=== PATIENT | female | born 1940 | race Caucasian/White ===

== ENCOUNTER 2018-03-27 07:10 | Day surgery (SDC) | payer MEDICARE, BC ==
[~2018-03-27 07:10] MED LIST: Lactated Ringers 1,000 ML IV SCH; Lidocaine 1%/Sod Bicarbonate in NS 8.4% 1 ML Syringe IDERM PRN; Sodium Chloride 0.9% 10 ML Syringe FLUSH PRN
[2018-03-27] MEDS ORDERED: Lidocaine 1% with EPINEPHrine 1:100,000 20 ML MDV ONE (07:25)
[2018-03-27] MEDS ORDERED: Lidocaine 1% 30 ML SDV ONE (07:26)
--- NOTE | 2018-03-27 07:46 | PCM.PREANE ---
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 no difference in her behavior or symptoms) - Physical Assessment NPO Status Date: 03/26/18 NPO Status Time: 21:00 O2 Sat by Pulse Oximetry: 98 Respiratory Rate: 20 Blood Pressure: 157/102 Temperature: 98 F ASA Class: 2 Mental Status: Other (Patient is demented .) - Allergies Allergies/Adverse Reactions: Allergies Allergy/AdvReac Type Severity Reaction Status Date / Time adhesive Allergy Cannot Verified 10/04/14 12:47 Remember celecoxib [From Celebrex] Allergy Cannot Verified 10/04/14 12:47 Remember ketorolac tromethamine Allergy Cannot Verified 10/04/14 12:47 [From Toradol] Remember latex Allergy Cannot Verified 10/04/14 12:47 Remember meperidine HCl [From Demerol] Allergy Cannot Verified 10/04/14 12:47 Remember NSAIDS (Non-Steroidal Allergy Cannot Verified 10/04/14 12:47 Anti-Inflamma Remember Sulfa (Sulfonamide Allergy Cannot Verified 10/04/14 12:47 Antibiotics) Remember - Acknowledgements Anesthesia Type Planned: MAC Pt an Appropriate Candidate for the Planned Anesthesia: Yes Alternatives and Risks of Anesthesia Discussed w Pt/Guardian: Yes Pt/Guardian Understands and Agrees with Anesthesia Plan: Yes Additional Comments: anesthesia consent signed by [employer] (PHONE CONSENT) by RAUDEL MOSER PreAnesthesia Questionnaire HEENT History: Reports: Cataract, Other (See Below) Other HEENT History: conjunctivitis Cardiovascular History: Reports: Afib, Blood Clots/VTE/DVT, Hypertension Other Cardiovascular History: currently on coumadin Psychiatric History: Reports: Anxiety, Dementia Dermatologic History: Reports: Other (See Below) Other Dermatologic History: rosacea - Past Surgical History GI Surgical History: Reports: Appendectomy - History Comment History Comment: Patient is demented, unable to provide medical history - HOME MEDS Home Medications: Home Meds Acetaminophen [Tylenol] 650 mg PO DAILY PRN 02/18/15 [History] Calcium Carbonate [Tums] 600 mg PO DAILY PRN 02/18/15 [History] Calcium Citrate/Vitamin D3 [Calcium Citrate + D] 500 tab PO DAILY 02/18/15 [ History] Folic Acid 1 mg PO DAILY 02/18/15 [History] Lactose-Reduced Food [Ensure Original] 8 oz PO DAILY 02/18/15 [History] Loperamide [Imodium] 2 mg PO DAILY PRN 02/18/15 [History] Magnesium Hydroxide [Milk of Magnesia] 30 ml PO DAILY PRN 02/18/15 [History] Memantine HCl [Namenda Xr] 10 mg PO BID 02/18/15 [History] Multivitamin [Multivitamins] 1 cap PO DAILY 02/18/15 [History] Rivastigmine [Exelon] 3 mg PO BID 02/18/15 [History] Warfarin [Coumadin] 1.25 mg PO BEDTIME 02/18/15 [History] metroNIDAZOLE [Metrogel 1%] 1 mg VAG BEDTIME 02/18/15 [History] Multivitamins with Iron/Min [Cerovite Jr] 1 tab PO DAILY 03/27/18 [History] OLANZapine [ZyPREXA] 2.5 mg PO BID 03/27/18 [History] - CURRENT (IN HOUSE) MEDS Current Meds: Current Medications Lactated Ringer's (Ringers, Lactated) 1,000 mls @ 125 mls/hr IV ASDIRECTED KIMBERLY Stop: 03/27/18 23:00 Lidocaine/Sodium Bicarbonate (Buffered Lidocaine 1% In Ns 8.4%) 0.25 ml IDERM ONETIME PRN PRN Reason: Prior to IV Start Stop: 03/27/18 18:00 Sodium Chloride (Saline Flush) 10 ml FLUSH ASDIRECTED PRN PRN Reason: Keep Vein Open Stop: 03/27/18 18:00 Discontinued Medications Lidocaine HCl (Xylocaine-Mpf 1%) Confirm Administered Dose 30 ml .ROUTE .STK- MED ONE Stop: 03/27/18 07:27 Lidocaine/Epinephrine (Xylocaine 1% With Epinephrine 1:100,000) Confirm Administered Dose 20 ml .ROUTE .STK-MED ONE Stop: 03/27/18 07:26
[2018-03-27] MEDS ORDERED: Lidocaine 1% 4 ML ONE (08:06)
[2018-03-27] MEDS ORDERED: fentaNYL 100 MCG/2 ML SDV ONE (08:07)
[2018-03-27] MEDS ORDERED: Propofol 200 MG/20 ML SDV ONE ×2 (08:07→10:04)
[2018-03-27] MEDS ORDERED: Bacitracin Oint 15 GM Tube ONE (09:49)
[2018-03-27] MEDS ORDERED: Lidocaine 1% 2 ML ONE (10:11)
--- NOTE | 2018-03-27 10:26 | PCM.OPNOTE ---
- General Post-Op/Procedure Note Date of Surgery/Procedure: 03/27/18 Operative Procedure(s): excision of SCC with full thickness skin graft Pre Op Diagnosis: SCc Post-Op Diagnosis: Same Anesthesia Technique: MAC Primary Surgeon: Wan TEMPLE in mLs: 5 Complications: None Condition: Good
[2018-03-27 10:27] VITALS: BP 129/75
--- NOTE | 2018-03-27 10:27 | PCM48HPAN ---
Post Anesthesia Note - EVALUATION WITHIN 48HRS OF ANESTHETIC Vital Signs in Normal Range: Yes Patient Participated in Evaluation: Yes Respiratory Function Stable: Yes Airway Patent: Yes Cardiovascular Function Stable: Yes Hydration Status Stable: Yes Pain Control Satisfactory: Yes Nausea and Vomiting Control Satisfactory: Yes Mental Status Recovered: Yes (back to baseline) Pulse Rate: 93 SaO2: 94 Resp Rate: 18 Temperature: 97.6 F Blood Pressure: 129/75
--- NOTE | 2018-03-28 06:49 | OR ---
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 OPERATION PERFORMED: Excision and full-thickness skin graft, under frozen section control. FINDINGS: An ulcerating lesion measuring margin and lesion 3.5 cm with a skin graft composing of graft harvested from the left side of the neck measuring 1.5 cm. ANESTHESIA: IV sedation, local anesthetic. ESTIMATED BLOOD LOSS: 5 mL. DESCRIPTION OF PROCEDURE: The patient was taken to the operating room, placed in the supine position, connected to monitoring equipment, and given IV sedation. The area in question was identified and prepped with Betadine after protecting the eye. Using a marking pen, the lines of excision were then marked and measured, and then anesthetized. The lesion was then excised, and the inferomedial margin was marked with a short suture, black suture; superomedial margin marked with a long black suture; and the superior-lateral and superior-inferior margin were left unmarked, but were in a clockwise formation. The specimen was then sent to pathology, where frozen section showed clear margins. The skin edges were undermined. The skin was then brought together with interrupted 4-0 Vicryl suture, except for a small central area measuring 1.5 cm. This was left open and a skin graft was harvested from the neck. Skin graft was placed in position and sutured to the edge of the skin with interrupted 4-0 Vicryl suture. These were left long so that cotton impregnated with bacitracin was used as a bolster and it was tied in place with long Vicryl sutures. The rest of the incision was then closed. The skin was then closed with interrupted 4-0 Prolene suture. Sterile dressing placed. The donor site was closed first with buried subdermal interrupted 4-0 Vicryl suture and interrupted 4-0 Prolene suture. Sterile dressing placed. The patient tolerated the procedure and sent to recovery room in a stable condition. MMODAL /[id number]
== END 2018-03-27 11:31 | disposition home or self-care (01) ==
LOC: JD.SDS 07:10
PROVIDERS: ATTEND Surgery
DX: D04.39 Carcinoma in situ of skin of other parts of face (principal); I10 Essential (primary) hypertension; I48.91 Unspecified atrial fibrillation; F41.9 Anxiety disorder, unspecified; I82.409 Acute embolism and thrombosis of unspecified deep veins of unspecified lower extremity; Z79.01 Long term (current) use of anticoagulants; Z79.899 Other long term (current) drug therapy; Z88.5 Allergy status to narcotic agent; Z88.6 Allergy status to analgesic agent; Z88.2 Allergy status to sulfonamides; Z91.040 Latex allergy status
CPT/HCPCS: 11644; 15240; 36415; 85610; A9270; J2704; J3010; J7120; 00300; 88305; J2001

== ENCOUNTER 2018-11-06 13:01 | Emergency (ER) | payer MEDICARE, BC ==
[2018-11-06 13:38] VITALS: BP 129/90
--- NOTE | 2018-11-06 14:46 | EDM.PDOC ---
ED HPI GENERAL MEDICAL PROBLEM - General Chief Complaint: Upper Extremity Injury/Pain Stated Complaint: LT HAND INJURY Time Seen by Provider: 11/06/18 14:34 Source of Information: Reports: Patient, Family History Limitations: Reports: Altered Mental Status (History of dementia and Alzheimer's per [employer] staff present. ) - History of Present Illness INITIAL COMMENTS - FREE TEXT/NARRATIVE: Patient is a 78-year-old female who presents to the ED complaining of left hand , wrist, forearm pain with swelling and bruising. Staff who is present states the patient was at lunch and they suspect that she may have hit it on the table or got it caught between the table and chair. They applied ice to the affected area with no reduction of swelling. Patient has minimal pain with palpation and has not really complained of pain upon admission. She has a history of Alzheimer's. - Related Data Allergies Allergy/AdvReac Type Severity Reaction Status Date / Time adhesive Allergy Cannot Verified 10/04/14 12:47 Remember celecoxib [From Celebrex] Allergy Cannot Verified 10/04/14 12:47 Remember ketorolac tromethamine Allergy Cannot Verified 10/04/14 12:47 [From Toradol] Remember latex Allergy Cannot Verified 10/04/14 12:47 Remember meperidine HCl [From Demerol] Allergy Cannot Verified 10/04/14 12:47 Remember NSAIDS (Non-Steroidal Allergy Cannot Verified 10/04/14 12:47 Anti-Inflamma Remember Sulfa (Sulfonamide Allergy Cannot Verified 10/04/14 12:47 Antibiotics) Remember Home Meds: Home Meds Acetaminophen [Tylenol] 650 mg PO DAILY PRN 02/18/15 [History] Calcium Carbonate [Tums] 600 mg PO DAILY PRN 02/18/15 [History] Calcium Citrate/Vitamin D3 [Calcium Citrate + D] 500 tab PO DAILY 02/18/15 [ History] Folic Acid 1 mg PO DAILY 02/18/15 [History] Lactose-Reduced Food [Ensure Original] 8 oz PO DAILY 02/18/15 [History] Loperamide [Imodium] 2 mg PO DAILY PRN 02/18/15 [History] Magnesium Hydroxide [Milk of Magnesia] 30 ml PO DAILY PRN 02/18/15 [History] Memantine HCl [Namenda Xr] 10 mg PO BID 02/18/15 [History] Multivitamin [Multivitamins] 1 cap PO DAILY 02/18/15 [History] Rivastigmine [Exelon] 3 mg PO BID 02/18/15 [History] Warfarin [Coumadin] 1.25 mg PO BEDTIME 02/18/15 [History] metroNIDAZOLE [Metrogel 1%] 1 mg VAG BEDTIME 02/18/15 [History] Multivitamins with Iron/Min [Cerovite Jr] 1 tab PO DAILY 03/27/18 [History] OLANZapine [ZyPREXA] 2.5 mg PO BID 03/27/18 [History] Past Medical History HEENT History: Reports: Cataract, Other (See Below) Other HEENT History: conjunctivitis Cardiovascular History: Reports: Afib, Blood Clots/VTE/DVT, Hypertension Other Cardiovascular History: currently on coumadin Psychiatric History: Reports: Anxiety, Dementia Dermatologic History: Reports: Other (See Below) Other Dermatologic History: rosacea - Past Surgical History GI Surgical History: Reports: Appendectomy - History Comment History Comment: Patient is demented, unable to provide medical history Review of Systems - Review of Systems Review Of Systems: ROS reveals no pertinent complaints other than HPI. ED EXAM, GENERAL - Physical Exam Exam: See Below Exam Limited By: Altered Mental Status (History of Alzheimer's/dementia) General Appearance: Alert, WD/WN, No Apparent Distress Eye Exam: Bilateral Eye: Normal Inspection Ears: Hearing Grossly Normal Nose: Normal Inspection Throat/Mouth: Normal Voice, No Airway Compromise Neck: Normal Inspection, Supple Respiratory/Chest: No Respiratory Distress, No Accessory Muscle Use Cardiovascular: Normal Peripheral Pulses, Regular Rate, Rhythm Peripheral Pulses: 2+: Radial (L) Extremities: Other (Ecchymosis with swelling to the dorsal aspect of the left hand, wrist, and forearm. Minimal pain with palpation. No sensory deficits noted on examination. She is able flex and extend at the wrist and fingers.) Neurological: Alert, CN II-XII Intact, Normal Cognition, No Motor/Sensory Deficits Psychiatric: Normal Affect, Normal Mood Skin Exam: Warm, Dry Course - Vital Signs Last Recorded V/S: Last Vital Signs Temp 98.6 F 11/06/18 13:33 Pulse 91 11/06/18 13:33 Resp 20 11/06/18 13:33 BP 129/90 11/06/18 13:33 Pulse Ox 94 L 11/06/18 13:33 - Orders/Labs/Meds Labs: Laboratory Tests 11/06/18 Range/Units 15:29 PT 33.5 H (9.5-12.1) SECONDS INR 3.14 - Re-Assessments/Exams Free Text/Narrative Re-Assessment/Exam: Unclear how patient injured her left hand, wrist, forearm. She is on Coumadin with unknown last INR. Will obtain INR along with x-rays of the hand, and forearm. X-ray of the left hand and forearm with wrist did not reveal any acute bony abnormalities. Soft tissue swelling present. INR is 3.14. Patient is on Coumadin for A. fib, blood clots, and DVT. There is no report of mechanical heart valve. It appears patient is supratherapeutic. Range should be between 2.0 and 3.0. I will have patient hold the dose of Coumadin this evening. Follow-up with PCP in 3 days for redraw of the INR. These instructions were provided to staff as well who are present with the patient. Departure - Departure Time of Disposition: 16:34 Disposition: Home, Self-Care 01 Condition: Good Clinical Impression: Supratherapeutic INR Hand contusion Qualifiers: Encounter type: initial encounter Laterality: left Qualified Code(s): S60.222A - Contusion of left hand, initial encounter Contusion of forearm, left Qualifiers: Encounter type: initial encounter Qualified Code(s): S50.12XA - Contusion of left forearm, initial encounter Contusion of wrist, left Qualifiers: Encounter type: initial encounter Qualified Code(s): S60.212A - Contusion of left wrist, initial encounter - Discharge Information Instructions: Contusion, Warfarin Coagulopathy Referrals: Isaiah Madera MD [Primary Care Provider] - Forms: ED Department Discharge Additional Instructions: X-rays of the hand, wrist, and forearm did not reveal any acute bony abnormalities. Suspect patient has contusion to the left hand, wrist, forearm. Since patient is on Coumadin this increases her risk of bruising. Again unclear on how she injured these areas. Her INR was 3.14. With review of her history she has a history of A. fib, blood clots to legs and lungs. I believe her INR is supratherapeutic. Should be between 2.0 and 3.0. Please skip dose of Coumadin this evening. Have the patient continue normal regimen starting tomorrow. See PCP in 3 days for repeat INR. May apply ice to the affected area 3 times daily, 20 minutes in duration, do not apply ice directly on the skin. Monitor for any new or worsening symptoms. If so please return back to ED for reevaluation.
--- NOTE | 2018-11-06 15:24 | CR ---
Left hand: Three views of the left hand were obtained. Diffuse soft tissue swelling is seen. Bony structures are osteoporotic. Joint space narrowing is noted off the distal navicular bone with fairly severe degenerative change at the CMC joint of the thumb. Diffuse joint space narrowing is noted within the DIP, PIP and DIP joints. No acute fracture, dislocation or other bony abnormality is seen. Impression: 1. Soft tissue swelling. Osteoporosis and degenerative change. 2. No acute bony abnormality is identified. Diagnostic code #2
--- NOTE | 2018-11-06 15:24 | CR ---
Left forearm: Two views of the left forearm were obtained. Soft tissue swelling is seen. Bony structures are osteopenic. Calcifications are seen within the triangular fibrocartilage. Bony structures are osteoporotic. No acute fracture or other abnormality is appreciated. Vascular calcification is noted. Impression: 1. Soft tissue swelling. 2. Other incidental findings. No acute bony abnormality is identified. Diagnostic code #3
== END 2018-11-06 17:15 | disposition home or self-care (01) ==
LOC: JD.ED 13:01
DX: S60.222A Contusion of left hand, initial encounter (principal); S50.12XA Contusion of left forearm, initial encounter; S60.212A Contusion of left wrist, initial encounter; I10 Essential (primary) hypertension; F41.9 Anxiety disorder, unspecified; Z91.09 Other allergy status, other than to drugs and biological substances; Z88.1 Allergy status to other antibiotic agents; Z88.6 Allergy status to analgesic agent; Z91.040 Latex allergy status; Z88.5 Allergy status to narcotic agent; Z88.8 Allergy status to other drugs, medicaments and biological substances; Z88.2 Allergy status to sulfonamides; Z79.899 Other long term (current) drug therapy; I48.91 Unspecified atrial fibrillation; X58.XXXA Exposure to other specified factors, initial encounter
CPT/HCPCS: 36415; 73090-26-LT; 73090-LT; 73130-26-LT; 73130-LT; 85610; 99282; 99283-25